=== PATIENT | male | born 1985 | race Caucasian/White ===

== ENCOUNTER → 2017-11-26 | Outpatient (CLI) | payer OTHER ==
[~2017-11-26] MED LIST: PROHANCE 279.3MG/ML 15ML VIAL (A9576) As Ordered
== END ==
LOC: M RAD 08:57
DX: H81.49 Vertigo of central origin, unspecified ear (principal)
CPT/HCPCS: A9576

== ENCOUNTER → 2018-04-29 | Outpatient (CLI) | payer OTHER | LOC: M SLEEP HO 13:21 | DX: R40.0 Somnolence (principal); R06.83 Snoring | CPT/HCPCS: G0399 ==

== ENCOUNTER 2018-05-31 08:08 | Emergency (ER) | payer OTHER ==
[2018-05-31] MEDS: traMADol 50 MG TAB PO (09:11)
[2018-05-31 09:17] LABS: BASO % 0.4 % (0.0-1.0); EOS # 0.1 10^3/uL (0.0-0.50); EOS % 0.7 % (0.0-3.0); HEMATOCRIT 48.3 % (42.0-52.0); HEMOGLOBIN 15.9 g/dl (13.5-17.5); IMMATURE GRANULOCYTE % 0.3 % (0-3.0); LYMPH # 2.6 10^3/uL (1.5-4.5); LYMPH % 23.8 % (24.0-44.0); MEAN CORPUSCULAR HEMOGLOBIN 27.1 pg (27.0-33.0); MEAN CORPUSCULAR HGB CONC 32.9 g/dl (32.0-36.5); MEAN CORPUSCULAR VOLUME 82.4 fl (80.0-96.0); MONO # 0.9 10^3/uL (0.0-0.8); MONO % 8.1 % (0.0-5.0); NEUTROPHILS # 7.3 10^3/uL (1.8-7.7); NEUTROPHILS % 66.7 % (36.0-66.0); PLATELET COUNT, AUTOMATED 214 10^3/uL (150-450); RED BLOOD COUNT 5.86 10^6/uL (4.30-6.10); WHITE BLOOD COUNT 10.9 10^3/uL (4.0-10.0)
[2018-05-31 09:44] LABS: URIC ACID 7.6 MG/DL (3.5-7.2)
[2018-06-03 00:06] LABS: Lyme Disease IgG/IgM Antibodie <0.91 ISR (0.00-0.90); Lyme Disease IgM Ab Quantitati <0.80 index (0.00-0.79)
== END 2018-05-31 10:26 | disposition home or self-care (01) ==
LOC: M ED 08:08
DX: M10.9 Gout, unspecified (principal)
CPT/HCPCS: 73630

== ENCOUNTER → 2020-09-13 | Outpatient (REF) | payer OTHER ==
[~2020-09-13] MED LIST changes: +COLC1TAB14 PO; +INDO50CA91 PO; +LISI10TA4; +OMEP1CAP73; -PROHANCE 279.3MG/ML 15ML VIAL (A9576) As Ordered
[2020-09-13 15:57] LABS: APPEARANCE, URINE CLEAR (CLEAR); BACTERIA, URINE AUTO NEGATIVE (NEGATIVE); BILIRUBIN, URINE AUTO NEGATIVE (NEGATIVE); BLOOD, URINE BLOOD NEGATIVE (NEGATIVE); COLOR, URINE YELLOW (YELLOW); GLUCOSE, URINE (UA) AUTO NEGATIVE (NEGATIVE); KETONE, URINE AUTO NEGATIVE (NEGATIVE); LEUKOCYTE ESTERASE, URINE AUTO NEGATIVE (NEGATIVE); NITRITE, URINE AUTO NEGATIVE (NEGATIVE); PROTEIN, URINE AUTO NEGATIVE (NEGATIVE); RBC, URINE AUTO 0 /HPF (0-3); SPECIFIC GRAVITY URINE AUTO 1.023 (1.002-1.035); SQUAMOUS EPITHELIAL CELL UR AU 0 /HPF (0-6); UROBILINOGEN, URINE AUTO 0.2 mg/dL (0.0-2.0); WBC, URINE AUTO 0 /HPF (0-3)
[2020-09-13 16:22] LABS: BLOOD UREA NITROGEN 18 MG/DL (7-18); CALCIUM LEVEL 8.8 MG/DL (8.5-10.1); CARBON DIOXIDE LEVEL 30 MEQ/L (21-32); CHLORIDE LEVEL 106 MEQ/L (98-107); CHOLESTEROL LEVEL 215 MG/DL (<200); CHOLESTEROL RISK RATIO 6.718 (<5); GLOMERULAR FILTRATION RATE > 60.0 (>60); GLUCOSE, FASTING 81 MG/DL (70-100); HDL CHOLESTEROL 32 MG/DL (>40); LDL CHOLESTEROL 136 MG/DL (<100); NON-HDL-C 183 MG/DL; POTASSIUM SERUM 4.3 MEQ/L (3.5-5.1); SODIUM LEVEL 140 MEQ/L (136-145); TRIGLYCERIDES LEVEL 236 MG/DL (<150)
[2020-09-13 16:32] LABS: CORTISOL AM 5.4 UG/DL (4.3-22.4)
[2020-09-21 07:06] LABS: METANEPHRINE PLASMA 37.1 pg/mL (0.0-88.0); NORMETANEPHRINE PLASMA 63.1 pg/mL (0.0-110.1); RENIN LEVEL 1.038 ng/mL/hr (0.167-5.380)
== END ==
LOC: M SFHCPLAZ 13:48
DX: I10 Essential (primary) hypertension (principal)

== ENCOUNTER → 2020-10-02 | Outpatient (CLI) | payer SELFPAY | LOC: M LABSMTC 13:58 | PROVIDERS: ATTEND Pediatrics | DX: Z20.828 Contact with and (suspected) exposure to other viral communicable diseases (principal) ==

== ENCOUNTER → 2021-09-10 | Outpatient (REF) | payer OTHER ==
[~2021-09-10] MED LIST changes: +LISI10TA22; -LISI10TA4
== END ==
LOC: M SFHCPLAZ 15:01
PROVIDERS: ATTEND Family Medicine
DX: M1A.0710 Idiopathic chronic gout, right ankle and foot, without tophus (tophi) (principal)

== ENCOUNTER → 2022-12-02 | Outpatient (CLI) | payer OTHER | LOC: M LAB 06:40 | PROVIDERS: ATTEND Student in an Organized Health Care Education/Training Program | DX: M10.40 Other secondary gout, unspecified site (principal) ==

== ENCOUNTER → 2024-02-17 | Outpatient (CLI) | payer OTHER ==
[2024-02-17 11:14] LABS: BLOOD UREA NITROGEN 11 MG/DL (9-23); CALCIUM LEVEL 9.8 MG/DL (8.5-10.1); CARBON DIOXIDE LEVEL 33 MMOL/L (20-31); CHLORIDE LEVEL 100 MMOL/L (98-107); CREATININE FOR GFR 1.07 MG/DL (0.70-1.30); GLOMERULAR FILTRATION RATE > 60.0 (>60); GLUCOSE, FASTING 95 MG/DL (60-100); SODIUM LEVEL 138 MMOL/L (136-145)
== END ==
LOC: M LAB 08:16
PROVIDERS: ATTEND Student in an Organized Health Care Education/Training Program
DX: I10 Essential (primary) hypertension (principal)

== ENCOUNTER → 2025-08-11 | Outpatient (CLI) | payer BC ==
[2025-08-11 08:18] LABS: PLATELET COUNT, AUTOMATED 239 10^3/uL (150-450)
[2025-08-11 08:51] LABS: ALT/SGPT 54.0 U/L (7.0-40); AST/SGOT 31.0 U/L (<34); CALCIUM LEVEL 8.9 MG/DL (8.5-10.1); CARBON DIOXIDE LEVEL 28.0 MMOL/L (20-31); CHLORIDE LEVEL 105.0 MMOL/L (98-107); CHOLESTEROL LEVEL 214.0 MG/DL (<200); CHOLESTEROL RISK RATIO 6.97 (<5); CREATININE FOR GFR 1.13 MG/DL (0.70-1.30); GLOMERULAR FILTRATION RATE 83.7 (>60); LDL CHOLESTEROL 137.5 MG/DL (<100); NON-HDL-C 183.3 MG/DL; POTASSIUM SERUM 3.8 MMOL/L (3.5-5.1); SODIUM LEVEL 143.0 MMOL/L (136-145); TRIGLYCERIDES LEVEL 229.0 MG/DL (<150)
[2025-08-11 09:54] LABS: ESTIMATED AVERAGE GLUCOSE 123.0 MG/DL (60-110)
== END ==
LOC: M LAB 07:18
DX: K21.9 Gastro-esophageal reflux disease without esophagitis (principal); I10 Essential (primary) hypertension; Z13.1 Encounter for screening for diabetes mellitus; Z13.220 Encounter for screening for lipoid disorders; Z13.29 Encounter for screening for other suspected endocrine disorder; M10.40 Other secondary gout, unspecified site